=== PATIENT | female | born 1970 | race African-American/Black ===

== ENCOUNTER 2020-08-05 16:26 | Emergency (ER) | payer SELFPAY ==
[~2020-08-05] VITALS: Ht 170 cm; Wt 77.0 kg
--- NOTE | 2020-08-05 17:27 | ED Cough/URI ---
General Stated Complaint: COUGHING/SOB Source: patient Exam Limitations: no limitations History of Present Illness Date Seen by Provider: Aug 05, 2020 Time Seen by Provider: 17:08 Initial Comments This is a 49 yo female presents to the ER with complaints of cough, feeling short of breath, and nasal congestion. States that she was evaluated by urgent care and given amoxicillin, today is her last dose. Also was tested at [facility] [place][note 3] for COVID 5 days ago and tested negative. States she would like something to help with inflammation in her nose. Denies fevers, chills, chest pain, nausea, vomiting, diarrhea, or abdominal pain. Allergies and Home Medications Allergies Coded Allergies: No Known Drug Allergies (Unverified , 08/05/20) Home Medications Albuterol Sulfate 1 Puff Puff, 2 PUFF INH Q4H PRN for SHORTNESS OF BREATH 1 PUFF = 90 MCG Prescribed by: ALIN CORNELL on 08/05/202017 Patient Home Medication List Home Medication List Reviewed: Yes Review of Systems Review of Systems Constitutional: see HPI EENTM: see HPI Respiratory: see HPI Cardiovascular: no symptoms reported Gastrointestinal: no symptoms reported Genitourinary: no symptoms reported : No Musculoskeletal: no symptoms reported Skin: no symptoms reported Psychiatric/Neurological: No Symptoms Reported Hematologic/Lymphatic: No Symptoms Reported Immunological/Allergic: no symptoms reported Past Tmaffig-Bitjqu-Pzeebv Hx Patient Social History Recent Foreign Travel: No Contact w/Someone Who Travel: No Physical Exam Vital Signs - First Documented Capillary Refill : Height: '" Weight: lbs. oz. kg; BMI Method: General Appearance: WD/WN, no apparent distress Eyes: Bilateral Eye Normal Inspection, Bilateral Eye PERRL, Bilateral Eye EOMI HEENT: PERRL/EOMI, TMs normal, pharynx normal; No pharyngeal erythema, No tonsillar exudate; other (swollen, red turbinates bilat. Clear sinus drainage. ) Neck: full range of motion, normal inspection Respiratory: chest non-tender, no respiratory distress, no accessory muscle use, wheezing, inspiration Cardiovascular: regular rate, rhythm, no murmur Gastrointestinal: normal bowel sounds, non tender, soft Extremities: normal range of motion, non-tender, normal inspection, normal capillary refill Neurologic/Psychiatric: no motor/sensory deficits, alert, normal mood/affect, oriented x 3 Skin: normal color, warm/dry Focused Exam Lactate Level 08/05/20 17:18: Lactic Acid Level 1.02 Lactic Acid Level Laboratory Tests Test 08/05/20 17:18 Lactic Acid Level 1.02 MMOL/L (0.50-2.00) Progress/Results/Core Measures Suspected Sepsis SIRS Temperature: Pulse: Respiratory Rate: Laboratory Tests 08/05/20 17:18: White Blood Count 9.9 Blood Pressure / Mean: 08/05/20 17:18: Lactic Acid Level 1.02 Laboratory Tests 08/05/20 17:18: Creatinine 0.80, INR Comment 1.0, Platelet Count 347, Total Bilirubin 0.3 Results/Orders Lab Results Laboratory Tests Test 08/05/20 17:18 08/05/20 17:23 Range/Units White Blood Count 9.9 4.3-11.0 10^3/uL Red Blood Count 4.08 3.80-5.11 10^6/uL Hemoglobin 12.9 11.5-16.0 g/dL Hematocrit 38 35-52 % Mean Corpuscular Volume 93 80-99 fL Mean Corpuscular Hemoglobin 32 25-34 pg Mean Corpuscular Hemoglobin Concent 34 32-36 g/dL Red Cell Distribution Width 12.1 10.0-14.5 % Platelet Count 347 130-400 10^3/uL Mean Platelet Volume 9.2 9.0-12.2 fL Immature Granulocyte % (Auto) 0 % Neutrophils (%) (Auto) 61 42-75 % Lymphocytes (%) (Auto) 22 12-44 % Monocytes (%) (Auto) 5 0-12 % Eosinophils (%) (Auto) 12 H 0-10 % Basophils (%) (Auto) 1 0-10 % Neutrophils # (Auto) 6.0 1.8-7.8 10^3/uL Lymphocytes # (Auto) 2.2 1.0-4.0 10^3/uL Monocytes # (Auto) 0.5 0.0-1.0 10^3/uL Eosinophils # (Auto) 1.1 H 0.0-0.3 10^3/uL Basophils # (Auto) 0.1 0.0-0.1 10^3/uL Immature Granulocyte # (Auto) 0.0 0.0-0.1 10^3/uL Prothrombin Time 13.7 12.2-14.7 SEC INR Comment 1.0 0.8-1.4 Activated Partial Thromboplast Time 28 24-35 SEC D-Dimer 1.26 H 0.00-0.49 UG/ML Sodium Level 137 135-145 MMOL/L Potassium Level 3.8 3.6-5.0 MMOL/L Chloride Level 103 98-107 MMOL/L Carbon Dioxide Level 25 21-32 MMOL/L Anion Gap 9 5-14 MMOL/L Blood Urea Nitrogen 6 L 7-18 MG/DL Creatinine 0.80 0.60-1.30 MG/DL Estimat Glomerular Filtration Rate > 60 BUN/Creatinine Ratio 8 Glucose Level 103 70-105 MG/DL Lactic Acid Level 1.02 0.50-2.00 MMOL/L Calcium Level 9.1 8.5-10.1 MG/DL Corrected Calcium 8.9 8.5-10.1 MG/DL Ferritin 165.8 20.0-177.0 ng/mL Total Bilirubin 0.3 0.1-1.0 MG/DL Aspartate Amino Transf (AST/SGOT) 17 5-34 U/L Alanine Aminotransferase (ALT/SGPT) 19 0-55 U/L Alkaline Phosphatase 95 40-136 U/L Lactate Dehydrogenase 187 125-220 U/L Troponin I < 0.028 <0.028 NG/ML C-Reactive Protein High Sensitivity 0.26 0.00-0.50 MG/DL Total Protein 7.8 6.4-8.2 GM/DL Albumin 4.2 3.2-4.5 GM/DL Serum Test, Qualitative NEGATIVE NEGATIVE Coronavirus 2019 (LIZZ) Negative Negative Group A Streptococcus Screen NEGATIVE NEGATIVE Micro Results Microbiology 08/05/20 Throat Culture - Final, Complete No Beta Strep isolated 08/05/20 Influenza Types A,B Antigen (RAMESH) - Final, Complete 08/05/20 Blood Culture - Preliminary, Resulted No growth My Orders Orders - ALIN CORNELL APRN Monitor-Rhythm Ecg Trace Only (08/05/20 17:21) Cbc With Automated Diff (08/05/20 17:21) Comprehensive Metabolic Panel (08/05/20 17:21) Ferritin (08/05/20 17:21) LDH (08/05/20 17:21) Hs C Reactive Protein (08/05/20 17:21) Troponin I (08/05/20 17:21) Lactic Acid Analyzer (08/05/20 17:21) Protime With Inr (08/05/20 17:21) Partial Thromboplastin Time (08/05/20 17:21) Fibrin Degradation Products (08/05/20 17:21) Ekg Tracing (08/05/20 17:21) Chest 1 View, Ap/Pa Only (08/05/20 17:21) Blood Culture (08/05/20 17:21) O2 (08/05/20 17:21) Albuterol Inhaler (Ventolin Hfa) (08/05/20 17:30) Covid 19 Inhouse Test (08/05/20 17:27) Influenza A And B Antigens (08/05/20 17:27) Rapid Strep A Screen (08/05/20 17:27) Hcg,Qualitative Serum (08/05/20 17:30) Ct Angio Chest W (08/05/20 18:25) Iohexol Injection (Omnipaque 350 Mg/Ml 1 (08/05/20 18:30) Received Contrast (Hold Metformin- Contr (08/05/20 18:30) Ns (Ivpb) (Sodium Chloride 0.9% Ivpb Bag (08/05/20 18:30) Dexamethasone Injection (Decadron Injec (08/05/20 20:00) Methylprednisolone Acetate Inj (Depo-Med (08/05/20 20:00) Dexamethasone Injection (Decadron Injec (08/05/20 20:15) Medications Given in ED Vital Signs/I&O 08/05/20 08/05/20 08/05/20 17:05 17:05 20:11 Temp 37.1 37.1 Pulse 104 104 87 Resp 24 24 20 B/P (MAP) 165/107 165/107 (126) 135/88 Pulse Ox 96 96 98 O2 Delivery Room Air Room Air Room Air Capillary Refill : Progress Note : Progress Note Upon arrival breathing easy non-labored vital signs stable. Majority of complaint is due to inflammation in her sinuses, persistent cough, and shortness of air. Given albuterol treatment 4 puffs with spacer. Covid work-up initi ated. Reported improvement of symptoms with albuterol. No wheezing appreciated on reassessment. Labs reviewed and are unremarkable other than elevated D-dimer. COVID was negative. Orders placed for CTA, d/t persistent shortness of breath. CTA was negative for pulmonary embolism. Symptoms are likely due to bronchitis, offered steroid injection and albuterol inhaler to go home with. She is agreeable to treatment at this time. Reviewed discharge plan with her she is agreeable with plan. Strongly encouraged to establish with a primary care provider. ECG Initial ECG Impression Date: Aug 06, 2020 Initial ECG Rate: 95 Initial ECG Rhythm: Normal Sinus Initial ECG Impression: Normal Diagnostic Imaging Diagonstic Imaging: Xray Plain Films/CT/US/NM/MRI: chest Comments NAME: JUANITA MANCUSO [facility] REC#: [id number] PT STATUS: REG ER : 1970 PHYSICIAN: ALIN CORNELL APRN ADMIT DATE: 08/05/20/ER Signed Date of Exam:08/05/20 CHEST 1 VIEW, AP/PA ONLY EXAMINATION: Chest 1 view HISTORY: Shortness of breath COMPARISON: None available. FINDINGS: Heart size and pulmonary vasculature are normal. The lungs are clear without consolidation, pleural effusion, or pneumothorax. The osseous structures are intact. IMPRESSION: 1. No acute radiographic abnormality in the chest. Dictated by: Dictated on workstation # [id number] Dict: 08/05/201740 Trans: 08/05/201740 [facility] [id number] Interpreted by: CRISS FRYE DO Electronically signed by: CRISS FRYE DO 08/05/201740 Diagonstic Imaging: CT Plain Films/CT/US/NM/MRI: chest Comments NAME: JUANITA MANCUSO [facility] REC#: [id number] PT STATUS: REG ER : 1970 PHYSICIAN: ALIN CORNELL APRN ADMIT DATE: 08/05/20/ER Draft Date of Exam:08/05/20 CT ANGIO CHEST W EXAMINATION: CT angiography of the chest. TECHNIQUE: Contrast enhanced thin section helical images were obtained through the chest with intravenous contrast timed for the optimal opacification of the arterial structures per CTA protocol. Post-processing, reconstructions and interpretation of angiographic images of the vessels was performed. 3D MIP reconstructions were performed and reviewed. All CT scans use one or more of the following dose optimizing techniques: automated exposure control, MA and/or KvP adjustment based on patient size and exam type or iterative reconstruction. HISTORY: Shortness of breath. COMPARISON: None available. FINDINGS: There is no pulmonary embolism. There is no edema or pneumonia. No pleural effusion. No pneumothorax. No suspicious nodules. There is no axillary or supraclavicular lymphadenopathy. There is mild hilar adenopathy and peribronchial vascular thickening around the mainstem bronchi. The esophagus is significantly thickened in the midportion. Heart size is normal. There are no coronary artery calcifications. No pericardial effusion. Aorta is normal in caliber. Limited views of the upper abdomen are unremarkable. There are no suspicious osseus lesions. IMPRESSION: 1. No pulmonary embolism, clear lungs. 2. Moderate wall thickening of the midesophagus which may represent esophagitis, follow-up endoscopy is recommended to ensure there is no underlying neoplasm. 3. Central bronchial wall thickening which may represent bronchitis. Dictated on workstation # [id number] Dict: 08/05/201918 Trans: 08/05/201922 [facility] [id number] Interpreted by: FINA CLEVELAND MD Electronically signed by: Departure Impression Primary Impression: Bronchitis Additional Impression: Shortness of breath Disposition: 01 HOME, SELF-CARE Condition: Improved Departure-Patient Inst. Decision time for Depature: 19:40 Patient Instructions: Acute Bronchitis Add. Discharge Instructions: Plan: 1. Discharge home. 2. May take Tylenol or Ibuprofen as needed for pain per package instructions. 3. Establish with a primary care provider of your choice. 4. Use albuterol inhaler 2 puffs every four hours as needed for shortness of breath. 5. Return for any new or concerning symptoms. Scripts Albuterol Sulfate (VENTOLIN HFA) 1 Puff Puff 2 PUFF INH Q4H PRN for SHORTNESS OF BREATH, #1 INHALER 0 Refills 1 PUFF = 90 MCG Prov: ALIN CORNELL FURNITURE SERVICER 08/05/20 ALIN CORNELL FURNITURE SERVICER Aug 05, 2020 17:27
[2020-08-05] MEDS ORDERED: RT-ALBUTEROL INHALER HFA (VENTOLIN HFA) 18 GM IH ONE (17:30)
[2020-08-05 17:40] LABS: BASOPHILS # (AUTO) 0.1 10^3/uL (0.0-0.1); BASOPHILS % (AUTO) 1 % (0-10); EOSINOPHILS # (AUTO) 1.1 10^3/uL (0.0-0.3); EOSINOPHILS % (AUTO) 12 % (0-10); HEMATOCRIT 38 % (35-52); HEMOGLOBIN 12.9 g/dL (11.5-16.0); LYMPHOCYTES # (AUTO) 2.2 10^3/uL (1.0-4.0); LYMPHOCYTES % (AUTO) 22 % (12-44); MEAN CORPUSCULAR HEMOGLOBIN 32 pg (25-34); MEAN CORPUSCULAR HGB CONC 34 g/dL (32-36); MEAN CORPUSCULAR VOLUME 93 fL (80-99); MEAN PLATELET VOLUME 9.2 fL (9.0-12.2); MONOCYTES # (AUTO) 0.5 10^3/uL (0.0-1.0); MONOCYTES % (AUTO) 5 % (0-12); NEUTROPHILS % (AUTO) 61 % (42-75); PLATELET COUNT 347 10^3/uL (130-400); WHITE BLOOD COUNT 9.9 10^3/uL (4.3-11.0)
--- NOTE | 2020-08-05 17:43 | Diagnostic Imaging Report ---
EXAMINATION: Chest 1 view HISTORY: Shortness of breath COMPARISON: None available. FINDINGS: Heart size and pulmonary vasculature are normal. The lungs are clear without consolidation, pleural effusion, or pneumothorax. The osseous structures are intact. IMPRESSION: 1. No acute radiographic abnormality in the chest. Dictated by: Dictated on workstation # [id number]
[2020-08-05 17:46] LABS: ALBUMIN 4.2 GM/DL (3.2-4.5); CHLORIDE 103 MMOL/L (98-107); POTASSIUM 3.8 MMOL/L (3.6-5.0); SODIUM 137 MMOL/L (135-145)
[2020-08-05 17:47] LABS: CALCIUM 9.1 MG/DL (8.5-10.1)
[2020-08-05 17:49] LABS: GLUCOSE 103 MG/DL (70-105); TOTAL PROTEIN 7.8 GM/DL (6.4-8.2)
[2020-08-05 17:50] LABS: BILIRUBIN,TOTAL 0.3 MG/DL (0.1-1.0); CARBON DIOXIDE 25 MMOL/L (21-32)
[2020-08-05 17:52] LABS: ALKALINE PHOSPHATASE 95 U/L (40-136); GFR ESTIMATED > 60
[2020-08-05 17:54] LABS: BUN/CREATININE RATIO 8; FIBRIN DEGRADATION PRODUCTS 1.26 UG/ML (0.00-0.49); PROTHROMBIN TIME PATIENT 13.7 SEC (12.2-14.7)
[2020-08-05 17:55] LABS: ALANINE AMINOTRANSFERASE 19 U/L (0-55)
[2020-08-05] MEDS ORDERED: IOHEXOL 350 MG/ML 100 ML (OMNIPAQUE 350) VIAL IV ONE (18:30)
[2020-08-05] MEDS ORDERED: NS 100 ML (IVPB) BAG IV ONE (18:30)
[2020-08-05] MEDS ORDERED: HOLD METFORMIN - RECEIVED CONTRAST 20 ML VIAL IV SCH (18:30)
--- NOTE | 2020-08-05 19:24 | Diagnostic Imaging Report ---
EXAMINATION: CT angiography of the chest. TECHNIQUE: Contrast enhanced thin section helical images were obtained through the chest with intravenous contrast timed for the optimal opacification of the arterial structures per CTA protocol. Post-processing, reconstructions and interpretation of angiographic images of the vessels was performed. 3D MIP reconstructions were performed and reviewed. All CT scans use one or more of the following dose optimizing techniques: automated exposure control, MA and/or KvP adjustment based on patient size and exam type or iterative reconstruction. HISTORY: Shortness of breath. COMPARISON: None available. FINDINGS: There is no pulmonary embolism. There is no edema or pneumonia. No pleural effusion. No pneumothorax. No suspicious nodules. There is no axillary or supraclavicular lymphadenopathy. There is mild hilar adenopathy and peribronchial vascular thickening around the mainstem bronchi. The esophagus is significantly thickened in the midportion. Heart size is normal. There are no coronary artery calcifications. No pericardial effusion. Aorta is normal in caliber. Limited views of the upper abdomen are unremarkable. There are no suspicious osseus lesions. IMPRESSION: 1. No pulmonary embolism, clear lungs. 2. Moderate wall thickening of the midesophagus which may represent esophagitis, follow-up endoscopy is recommended to ensure there is no underlying neoplasm. 3. Central bronchial wall thickening which may represent bronchitis. Dictated by: Dictated on workstation # [id number]
[2020-08-05] MEDS ORDERED: methylPREDNISolone 80 MG/ML (DEPO MEDROL) VIAL IM ONE (20:00)
[2020-08-05 20:11] VITALS: BP 135/88
[2020-08-05] MEDS ORDERED: RT-ALBUINH INH (20:18)
== END 2020-08-05 20:11 | disposition home or self-care (01) ==
LOC: ER 16:29
DX: J40 Bronchitis, not specified as acute or chronic (principal); R06.02 Shortness of breath; Z20.828 Contact with and (suspected) exposure to other viral communicable diseases
CPT/HCPCS: 71045; 71275; 80053; 82728; 83605; 83615; 84484; 84703; 85025; 85379; 85610; 85730; 86141; 87040; 87430; 87804; 93041; 99284; U0002; 36415; 87635

== ENCOUNTER 2020-08-24 18:28 | Emergency (ER) | payer SELFPAY ==
[~2020-08-24] VITALS: Ht 170 cm; Wt 86.0 kg
[~2020-08-24 18:28] MED LIST: RT-ALBUINH INH
--- NOTE | 2020-08-24 18:51 | ED Respiratory ---
General Chief Complaint: Respiratory Problems Stated Complaint: Source: patient Exam Limitations: no limitations History of Present Illness Date Seen by Provider: Aug 24, 2020 Time Seen by Provider: 18:35 Initial Comments Patient presents to the ER by private conveyance from [facility] urgent care. Called ahead by Sophie nurse practitioner stating that the patient was diagnosed today with a positive COVID-19 swab. She had a chest x-ray done but no other labs were done. She felt that her oxygen sats were 94% on room air and 91% on ambulation and she should be evaluated in the ER. Patient has no history of lung disease heart disease nor has she ever smoked. She does not have any chronic medical conditions nor does she take any medicines routinely. She is not on control. She denies significant pain just malaise body aches. She took Tylenol about 4 to 5 hours prior to arrival. She is not having any nausea. She had diarrhea a few days ago. She is able to keep up with her eating and drinking. The patient states her symptoms started around Thanks[place] with a cold. She was seen on the here at this ER and at that time was diagnosed with bronchitis and put on cefdinir and steroids which she completed. Allergies and Home Medications Allergies Coded Allergies: No Known Drug Allergies (Unverified , 08/05/20) Home Medications Albuterol Sulfate 1 Puff Puff, 2 PUFF INH Q4H PRN for SHORTNESS OF BREATH 1 PUFF = 90 MCG Prescribed by: ALIN CORNELL on 08/05/20 2018 Patient Home Medication List Home Medication List Reviewed: Yes Review of Systems Review of Systems Constitutional: chills; No diaphoresis; malaise, weakness EENTM: No ear discharge, No ear pain Respiratory: cough; No phlegm, No short of breath, No wheezing Cardiovascular: No chest pain, No palpitations Gastrointestinal: No abdominal pain, No constipation; diarrhea; No nausea, No vomiting Genitourinary: No dysuria, No frequency Musculoskeletal: No back pain, No joint pain Psychiatric/Neurological: Denies Anxiety, Denies Depressed All Other Systems Reviewed Negative Unless Noted: Yes Past Qkuuagp-Yvyako-Pnqrup Hx Patient Social History Alcohol Use: Denies Use Smoking Status: Never a Smoker 2nd Hand Smoke Exposure: Yes Recent Hopitalizations: No Seasonal Allergies Seasonal Allergies: Yes Past Medical History Surgeries: No Respiratory: No Cardiac: No Neurological: No Genitourinary: No Gastrointestinal: No Musculoskeletal: No Endocrine: No HEENT: No Cancer: No Psychosocial: No Integumentary: No Blood Disorders: No Physical Exam Vital Signs - First Documented 08/24/20 18:38 Temp 36.4 Pulse 101 Resp 20 B/P (MAP) 172/101 (124) Pulse Ox 94 O2 Delivery Room Air Capillary Refill : Height: '" Weight: lbs. oz. kg; 26.00 BMI Method: General Appearance: WD/WN, mild distress Eyes: Bilateral Eye Normal Inspection, Bilateral Eye PERRL, Bilateral Eye EOMI HEENT: PERRL/EOMI, normal ENT inspection, pharynx normal Neck: full range of motion, supple, normal inspection Respiratory: no accessory muscle use, respiratory distress (Mild with oxygen sats of 95% on room air while at rest.) Cardiovascular: normal peripheral pulses, regular rate, rhythm Gastrointestinal: non tender, soft Neurologic/Psychiatric: alert, normal mood/affect, oriented x 3 Skin: normal color, warm/dry Focused Exam Lactate Level 08/24/20 18:42: Lactic Acid Level 1.62 Lactic Acid Level Laboratory Tests Test 08/24/20 18:42 Lactic Acid Level 1.62 MMOL/L (0.50-2.00) Progress/Results/Core Measures Suspected Sepsis SIRS Temperature: Pulse: Respiratory Rate: Laboratory Tests 08/24/20 18:42: White Blood Count 12.5H Blood Pressure / Mean: 08/24/20 18:42: Lactic Acid Level 1.62 Laboratory Tests 08/24/20 18:42: Creatinine 0.88, INR Comment 1.0, Platelet Count 424H, Total Bilirubin 0.3 Results/Orders Lab Results Laboratory Tests Test 08/24/20 18:42 08/24/20 19:18 Range/Units White Blood Count 12.5 H 4.3-11.0 10^3/uL Red Blood Count 4.23 3.80-5.11 10^6/uL Hemoglobin 13.3 11.5-16.0 g/dL Hematocrit 40 35-52 % Mean Corpuscular Volume 95 80-99 fL Mean Corpuscular Hemoglobin 31 25-34 pg Mean Corpuscular Hemoglobin Concent 33 32-36 g/dL Red Cell Distribution Width 13.1 10.0-14.5 % Platelet Count 424 H 130-400 10^3/uL Mean Platelet Volume 9.1 9.0-12.2 fL Immature Granulocyte % (Auto) 0 % Neutrophils (%) (Auto) 59 42-75 % Lymphocytes (%) (Auto) 24 12-44 % Monocytes (%) (Auto) 5 0-12 % Eosinophils (%) (Auto) 11 H 0-10 % Basophils (%) (Auto) 1 0-10 % Neutrophils # (Auto) 7.4 1.8-7.8 10^3/uL Lymphocytes # (Auto) 3.0 1.0-4.0 10^3/uL Monocytes # (Auto) 0.6 0.0-1.0 10^3/uL Eosinophils # (Auto) 1.4 H 0.0-0.3 10^3/uL Basophils # (Auto) 0.1 0.0-0.1 10^3/uL Immature Granulocyte # (Auto) 0.0 0.0-0.1 10^3/uL Prothrombin Time 13.9 12.2-14.7 SEC INR Comment 1.0 0.8-1.4 Activated Partial Thromboplast Time 30 24-35 SEC D-Dimer 0.96 H 0.00-0.49 UG/ML Blood Gas Puncture Site R RAD Blood Gas Patient Temperature 97.6 Arterial Blood pH 7.41 7.37-7.43 Arterial Blood Partial Pressure CO2 33 L 35-45 MMHG Arterial Blood Partial Pressure O2 82 79-93 MMHG Arterial Blood HCO3 20 L 23-27 MMOL/L Arterial Blood Total CO2 21.4 21.0-31.0 MMOL/L Arterial Blood Oxygen Saturation 95 94-100 % Arterial Blood Base Excess -3.6 L -2.5-2.5 MMOL/L Abel Test YES-POS Blood Gas Ventilator Setting NO Blood Gas Inspired Oxygen RA Sodium Level 138 135-145 MMOL/L Potassium Level 3.7 3.6-5.0 MMOL/L Chloride Level 103 98-107 MMOL/L Carbon Dioxide Level 23 21-32 MMOL/L Anion Gap 12 5-14 MMOL/L Blood Urea Nitrogen 7 7-18 MG/DL Creatinine 0.88 0.60-1.30 MG/DL Estimat Glomerular Filtration Rate > 60 BUN/Creatinine Ratio 8 Glucose Level 113 H 70-105 MG/DL Lactic Acid Level 1.62 0.50-2.00 MMOL/L Calcium Level 9.1 8.5-10.1 MG/DL Corrected Calcium 8.9 8.5-10.1 MG/DL Total Bilirubin 0.3 0.1-1.0 MG/DL Aspartate Amino Transf (AST/SGOT) 16 5-34 U/L Alanine Aminotransferase (ALT/SGPT) 17 0-55 U/L Alkaline Phosphatase 191 H 40-136 U/L C-Reactive Protein High Sensitivity 1.21 H 0.00-0.50 MG/DL Total Protein 8.5 H 6.4-8.2 GM/DL Albumin 4.2 3.2-4.5 GM/DL Procalcitonin 0.02 <0.10 NG/ML Serum Test, Qualitative NEGATIVE NEGATIVE Urine Color YELLOW Urine Clarity CLEAR Urine pH 6.5 5-9 Urine Specific [place] <=1.005 1.016-1.022 Urine Protein NEGATIVE NEGATIVE Urine Glucose (UA) NEGATIVE NEGATIVE Urine Ketones NEGATIVE NEGATIVE Urine Nitrite NEGATIVE NEGATIVE Urine Bilirubin NEGATIVE NEGATIVE Urine Urobilinogen 0.2 < = 1.0 MG/DL Urine Leukocyte Esterase NEGATIVE NEGATIVE Urine RBC (Auto) NEGATIVE NEGATIVE Urine RBC 0-2 /HPF Urine WBC 2-5 /HPF Urine Squamous Epithelial Cells 10-25 H /HPF Urine Crystals NONE /LPF Urine Bacteria NEGATIVE /HPF Urine Casts NONE /LPF Urine Mucus NEGATIVE /LPF Urine Culture Indicated NO Micro Results Microbiology 08/24/20 Influenza Types A,B Antigen (RAMESH) - Final, Complete My Orders Orders - CHARU ZAMORA Cbc With Automated Diff (08/24/20 18:48) Comprehensive Metabolic Panel (08/24/20 18:48) Blood Culture (08/24/20 18:48) Sputum Culture (08/24/20 18:48) Urinalysis (08/24/20 18:48) Urine Culture (08/24/20 18:48) Protime With Inr (08/24/20 18:48) Partial Thromboplastin Time (08/24/20 18:48) Chest 1 View, Ap/Pa Only (08/24/20 18:48) Ed Iv/Invasive Line Start (08/24/20 18:48) Ed Iv/Invasive Line Start (08/24/20 18:48) Vital Signs Adult Sepsis Patie Q15M (08/24/20 18:48) O2 (08/24/20 18:48) Remove Rings In Anticipation O (08/24/20 18:48) Lactic Acid Analyzer (08/24/20 18:48) Lactated Ringers (Lr 1000 Ml Iv Solution (08/24/20 19:00) Ed Iv/Invasive Line Start (08/24/20 18:48) Lactated Ringers (Lr 1000 Ml Iv Solution (08/24/20 19:00) Hs C Reactive Protein (08/24/20 18:48) Procalcitonin (Pct) (08/24/20 18:48) Fibrin Degradation Products (08/24/20 18:48) Ketorolac Injection (Toradol Injection) (08/24/20 19:00) Dexamethasone Injection (Decadron Inje (08/24/20 19:00) Arterial Blood Gas (08/24/20 18:51) Influenza A And B Antigens (08/24/20 18:51) Covid-19 External Lab Results (08/24/20 18:51) Hcg,Qualitative Serum (08/24/20 18:57) Ct Angio Chest W (08/24/20 19:30) Iohexol Injection (Omnipaque 350 Mg/Ml 1 (08/24/20 19:45) Received Contrast (Hold Metformin- Contr (08/24/20 19:45) Ns (Ivpb) (Sodium Chloride 0.9% Ivpb Bag (08/24/20 19:45) Medications Given in ED Current Medications Medications Dose Ordered Sig/Priya Route Start Time Stop Time Status Last Admin Dose Admin Dexamethasone Sodium Phosphate 6 mg ONCE ONCE IV 08/24/20 19:00 08/24/20 19:01 DC 08/24/20 19:13 6 MG Ketorolac Tromethamine 30 mg ONCE ONCE IVP 08/24/20 19:00 08/24/20 19:01 DC 08/24/20 19:11 30 MG Lactated Ringer's 1,000 ml @ 0 mls/hr Q0M ONCE IV 08/24/20 19:00 08/24/20 19:01 DC 08/24/20 19:10 999 MLS/HR Vital Signs/I&O 08/24/20 18:38 Temp 36.4 Pulse 101 Resp 20 B/P (MAP) 172/101 (124) Pulse Ox 94 O2 Delivery Room Air Capillary Refill : Progress Note : Time: 21:10 Progress Note After 1 L of IV fluids the patient states she is feeling better. She thinks the Toradol helped as well. She is going to try NSAIDs at home. She is not requiring oxygen as her oxygen sats not go below 95 to 96% while ambulating. She is not having any material deterioration during her ER stay and it was offered for her to go home and bulk picker an oxygen sat meter. She says she is had a lot of congestion and tried multiple vapor rubs, vqpl-gno-jcqrvql medicines for her congestion unsuccessfully including Afrin. We are going to try Flonase, dexamethasone, and chlorpheniramine for her congestion. Return precautions were discussed. Diagnostic Imaging Diagonstic Imaging: Xray Plain Films/CT/US/NM/MRI: chest Comments [facility] [place] [facility] [id number] PT STATUS: REG ER : 1970 PHYSICIAN: CHARU ZAMORA MD ADMIT DATE: 08/24/20/ER Signed Date of Exam:08/24/20 CHEST 1 VIEW, AP/PA ONLY INDICATION: Sepsis. Rapid Covid positive in Urgent Care. FINDINGS: Frontal view of the chest demonstrates the lungs to be clear. The heart, mediastinum and pulmonary vascularity are normal. There are no pleural effusions. There has been no change since August 05. IMPRESSION: Normal chest. Dictated by: Dictated on workstation # [id number] Dict: 08/24/202021 Trans: 08/24/202030 [facility] [id number] Interpreted by: JAIDEN FU MD Electronically signed by: JAIDEN FU MD 08/24/202030 Reviewed: Reviewed by Me Diagonstic Imaging: CT (angio) Plain Films/CT/US/NM/MRI: chest Comments [facility] [place] [facility] [id number] PT STATUS: REG ER : 1970 PHYSICIAN: CHARU ZAMORA MD ADMIT DATE: 08/24/20/ER Signed Date of Exam:08/24/20 CT ANGIO CHEST W PROCEDURE: CT angiography of the chest with contrast. TECHNIQUE: Multiple contiguous axial images were obtained through the chest after uneventful bolus administration of intravenous contrast. 3D reconstructed CTA MIP acquisitions were also performed. Auto Exposure Controls were utilized during the CT exam to meet ALARA standards for radiation dose reduction. INDICATION: Rapid Covid positive at Urgent Care. The patient has been fighting this since June. Shortness of air and chest pain on left side when coughing. No fever. High probability for pulmonary embolism. COMPARISON STUDY: CTA of the chest from August 05. FINDINGS: No pulmonary emboli, aortic dissection or aneurysm is present. There are no pleural or pericardial effusions. There has been development of a tiny groundglass infiltrate in the right upper lobe measuring 2 cm. Small hiatal hernia is present. There is some thickening of the esophagus just above the hiatal hernia. IMPRESSION: 1. No pulmonary emboli is present. 2. There has been development of a 2 cm groundglass infiltrate in the right upper lobe. 3. There is a small hiatal hernia with some thickening of the esophagus just above this. Dictated by: Dictated on workstation # [id number] Dict: 08/24/202011 Trans: 08/24/202030 [facility] [id number] Interpreted by: JAIDEN FU MD Electronically signed by: JAIDEN FU MD 08/24/202030 Reviewed: Reviewed by Me Departure Impression Primary Impression: COVID-19 Additional Impression: Sinus congestion Disposition: HOME, SELF-CARE Condition: Stable Departure-Patient Inst. Decision time for Depature: 20:40 Referrals: NO,LOCAL PHYSICIAN (PCP/Family) Primary Care Physician Patient Instructions: Coronavirus Disease 2019 (COVID-19) (DC) Add. Discharge Instructions: Drink plenty of fluids. Tylenol 650 mg every 6 hours as necessary for body aches or fever. Ibuprofen 600 mg every 6 hours as necessary for body aches or fever. Alternatively you may use 2 tablets of naproxen twice a day. Chlorpheniramine 4 mg every 4-6 hours as necessary for sinus congestion relief. Flonase 2 puffs each nostril every day for the next 1 to 2 weeks to relieve congestion in your nose. Vapor rubs such as Vicks or Mentholatum. Continue using yoqh-vjg-dnnsgab medications as indicated. Obtain a pulse oximeter and return to the ER if your oxygen saturation consistently stays below 94% especially while at rest. Dexamethasone 1 tablet every day for the next 9 days. Ondansetron 1 tablet under the tongue every 6 hours as necessary for nausea and/or vomiting. Return to the nearest ER if you are having significantly worsening shortness of air. All discharge instructions reviewed with patient and/or family. Voiced understanding. Scripts Ondansetron (Ondansetron Odt) 4 Mg Tab.rapdis 4 MG PO Q6H PRN for NAUSEA/VOMITING, #8 TAB 0 Refills Prov: CHARU ZAMORA 08/24/20 Dexamethasone (Dexamethasone) 6 Mg Tablet 6 MG PO DAILY for 9 Days, #9 TAB 0 Refills Prov: CHARU ZAMORA 08/24/20 Work/School Note: Work Release Form Date Seen in the Emergency Department: Aug 24, 2020 Return to Work: Sep 04, 2020 Restrictions: No Restrictions Other Restrictions Listed Below: Off quarantine when 24h symptoms free without meds to cover symptoms. CHARU ZAMORA Aug 24, 2020 18:51
[2020-08-24 18:56] LABS: ABG BASE EXCESS -3.6 MMOL/L (-2.5-2.5); ABG OXYGEN SATURATION 95 % (94-100); ABG PCO2 33 MMHG (35-45); ABG PH 7.41 (7.37-7.43); ABG PO2 82 MMHG (79-93); ABG TCO2 21.4 MMOL/L (21.0-31.0)
[2020-08-24 18:57] LABS: ALLENS TEST YES-POS; INSPIRED O2 RA; PATIENT TEMP 97.6; VENTILATOR NO
[2020-08-24] MEDS ORDERED: KETOROLAC 30 MG/ML VIAL IVP ONE (19:00)
[2020-08-24] MEDS ORDERED: LACTATED RINGERS 1,000 ML IV ONE ×2 (19:00)
[2020-08-24 19:02] LABS: BASOPHILS # (AUTO) 0.1 10^3/uL (0.0-0.1); BASOPHILS % (AUTO) 1 % (0-10); EOSINOPHILS # (AUTO) 1.4 10^3/uL (0.0-0.3); EOSINOPHILS % (AUTO) 11 % (0-10); HEMATOCRIT 40 % (35-52); HEMOGLOBIN 13.3 g/dL (11.5-16.0); LYMPHOCYTES % (AUTO) 24 % (12-44); MEAN CORPUSCULAR HEMOGLOBIN 31 pg (25-34); MEAN CORPUSCULAR HGB CONC 33 g/dL (32-36); MEAN CORPUSCULAR VOLUME 95 fL (80-99); MEAN PLATELET VOLUME 9.1 fL (9.0-12.2); MONOCYTES # (AUTO) 0.6 10^3/uL (0.0-1.0); MONOCYTES % (AUTO) 5 % (0-12); NEUTROPHILS # (AUTO) 7.4 10^3/uL (1.8-7.8); NEUTROPHILS % (AUTO) 59 % (42-75); PLATELET COUNT 424 10^3/uL (130-400); WHITE BLOOD COUNT 12.5 10^3/uL (4.3-11.0)
[2020-08-24 19:04] LABS: ALBUMIN 4.2 GM/DL (3.2-4.5); CHLORIDE 103 MMOL/L (98-107); POTASSIUM 3.7 MMOL/L (3.6-5.0); SODIUM 138 MMOL/L (135-145)
[2020-08-24 19:05] LABS: CALCIUM 9.1 MG/DL (8.5-10.1)
[2020-08-24 19:06] LABS: GLUCOSE 113 MG/DL (70-105); TOTAL PROTEIN 8.5 GM/DL (6.4-8.2)
[2020-08-24 19:07] LABS: CARBON DIOXIDE 23 MMOL/L (21-32)
[2020-08-24 19:08] LABS: BILIRUBIN,TOTAL 0.3 MG/DL (0.1-1.0)
[2020-08-24 19:10] LABS: ALKALINE PHOSPHATASE 191 U/L (40-136); CREATININE SERUM 0.88 MG/DL (0.60-1.30); FIBRIN DEGRADATION PRODUCTS 0.96 UG/ML (0.00-0.49); GFR ESTIMATED > 60; PROTHROMBIN TIME PATIENT 13.9 SEC (12.2-14.7)
[2020-08-24 19:11] LABS: BUN/CREATININE RATIO 8
[2020-08-24 19:13] LABS: ALANINE AMINOTRANSFERASE 17 U/L (0-55)
[2020-08-24 19:30] LABS: BILIRUBIN,URINE NEGATIVE (NEGATIVE); CLARITY,URINE CLEAR; COLOR,URINE YELLOW; GLUCOSE, URINE (UA) NEGATIVE (NEGATIVE); KETONES,URINE NEGATIVE (NEGATIVE); LEUKOCYTE ESTERASE ,URINE NEGATIVE (NEGATIVE); NITRITE,URINE NEGATIVE (NEGATIVE); PH,URINE 6.5 (5-9); PROTEIN,URINE NEGATIVE (NEGATIVE)
[2020-08-24 19:39] LABS: BACTERIA,URINE NEGATIVE /HPF; RBC,URINE 0-2 /HPF
[2020-08-24] MEDS ORDERED: HOLD METFORMIN - RECEIVED CONTRAST 20 ML VIAL IV SCH (19:45)
[2020-08-24] MEDS ORDERED: NS 100 ML (IVPB) BAG IV ONE (19:45)
[2020-08-24] MEDS ORDERED: IOHEXOL 350 MG/ML 100 ML (OMNIPAQUE 350) VIAL IV ONE (19:45)
--- NOTE | 2020-08-24 20:25 | Diagnostic Imaging Report ---
PROCEDURE: CT angiography of the chest with contrast. TECHNIQUE: Multiple contiguous axial images were obtained through the chest after uneventful bolus administration of intravenous contrast. 3D reconstructed CTA MIP acquisitions were also performed. Auto Exposure Controls were utilized during the CT exam to meet ALARA standards for radiation dose reduction. INDICATION: Rapid Covid positive at Urgent Care. The patient has been fighting this since June. Shortness of air and chest pain on left side when coughing. No fever. High probability for pulmonary embolism. COMPARISON STUDY: CTA of the chest from August 05. FINDINGS: No pulmonary emboli, aortic dissection or aneurysm is present. There are no pleural or pericardial effusions. There has been development of a tiny groundglass infiltrate in the right upper lobe measuring 2 cm. Small hiatal hernia is present. There is some thickening of the esophagus just above the hiatal hernia. IMPRESSION: 1. No pulmonary emboli is present. 2. There has been development of a 2 cm groundglass infiltrate in the right upper lobe. 3. There is a small hiatal hernia with some thickening of the esophagus just above this. Dictated by: Dictated on workstation # [id number]
--- NOTE | 2020-08-24 20:27 | Diagnostic Imaging Report ---
INDICATION: Sepsis. Rapid Covid positive in Urgent Care. FINDINGS: Frontal view of the chest demonstrates the lungs to be clear. The heart, mediastinum and pulmonary vascularity are normal. There are no pleural effusions. There has been no change since August 05. IMPRESSION: Normal chest. Dictated by: Dictated on workstation # [id number]
[2020-08-24] MEDS ORDERED: DEXA6TAB PO (21:15)
[2020-08-24] MEDS ORDERED: ONDA4TAB11 PO (21:15)
[2020-08-24 21:50] VITALS: BP 137/90
== END 2020-08-24 21:50 | disposition home or self-care (01) ==
LOC: EDUNIT# 18:28 → ER 18:33
DX: U07.1 COVID-19 (principal); R09.81 Nasal congestion; Z77.22 Contact with and (suspected) exposure to environmental tobacco smoke (acute) (chronic)
CPT/HCPCS: 36415; 71045; 71275; 80053; 81000; 82805; 83605; 84145; 84703; 85025; 85379; 85610; 85730; 86141; 87040; 87088; 87804

== ENCOUNTER 2020-08-25 18:46 | Emergency (ER) | payer SELFPAY ==
[~2020-08-25] VITALS: Ht 170 cm; Wt 86.1 kg
[~2020-08-25 18:46] MED LIST changes: +DEXA6TAB PO; +ONDA4TAB11 PO
[2020-08-25] MEDS ORDERED: RX-ALBUTEROL INHALER (VENTOLIN HFA) 18 GM IH STA (19:12)
--- NOTE | 2020-08-25 19:17 | ED Respiratory ---
General Chief Complaint: Respiratory Problems Stated Complaint: O2 STATS DROPPING Source: patient Exam Limitations: no limitations History of Present Illness Date Seen by Provider: Aug 25, 2020 Time Seen by Provider: 19:14 Initial Comments Patient presents ER by private conveyance with chief complaint of O2 sats dropping. She was seen recently yesterday for COVID-19 at urgent care and has been having symptoms of a cold since July 02. She was diagnosed with COVID- 19 yesterday at urgent care and sent to the ER for evaluation. She had extensive work-up IV fluids Toradol and had acceptable vital signs with mild tachycardia. She had an acceptable normal ABG and a CAT scan angiogram of her chest did not reveal any significant disease besides groundglass opacities consistent with COVID-19 in her right upper lobe. She obtained a pulse oximeter and said her sats were okay this morning but this afternoon they were between 90-91%. She left her pulse oximeter in the car today but will have someone bring it up. She is not having any fever nausea vomiting diarrhea or difficulty getting fluids down. Allergies and Home Medications Allergies Coded Allergies: No Known Drug Allergies (Unverified , 08/05/20) Home Medications Albuterol Sulfate 1 Puff Puff, 2 PUFF INH Q4H PRN for SHORTNESS OF BREATH 1 PUFF = 90 MCG Prescribed by: ALIN CORNELL on 08/05/202017 Dexamethasone 6 Mg Tablet, 6 MG PO DAILY Prescribed by: CHARU ZAMORA on 08/24/202114 Ondansetron 4 Mg Tab.rapdis, 4 MG PO Q6H PRN for NAUSEA/VOMITING Prescribed by: CHARU ZAMORA on 08/24/202114 Patient Home Medication List Home Medication List Reviewed: Yes Review of Systems Review of Systems Constitutional: No chills, No diaphoresis EENTM: No ear discharge, No ear pain Respiratory: No cough, No short of breath Cardiovascular: No chest pain, No Hx of Intervention Gastrointestinal: No abdominal pain, No nausea, No vomiting Genitourinary: No discharge, No dysuria Musculoskeletal: No back pain, No joint pain Skin: No pruritus, No rash All Other Systems Reviewed Negative Unless Noted: Yes Past Vseonkx-Vkxiru-Mwvoke Hx Patient Social History Alcohol Use: Denies Use Smoking Status: Never a Smoker 2nd Hand Smoke Exposure: Yes Recent Hopitalizations: No Seasonal Allergies Seasonal Allergies: Yes Past Medical History Surgeries: No Respiratory: No Cardiac: No Neurological: No DIRECTOR OF BLOOD History: Menopausal Genitourinary: No Gastrointestinal: No Musculoskeletal: No Endocrine: No HEENT: No Cancer: No Psychosocial: No Integumentary: No Blood Disorders: No Physical Exam Vital Signs - First Documented 08/25/20 19:08 Temp 36.1 Pulse 107 Resp 26 B/P (MAP) 155/90 (111) Pulse Ox 94 O2 Delivery Room Air Capillary Refill : Height: '" Weight: lbs. oz. kg; 29.00 BMI Method: General Appearance: WD/WN, mild distress Eyes: Bilateral Eye Normal Inspection, Bilateral Eye PERRL, Bilateral Eye EOMI HEENT: PERRL/EOMI, normal ENT inspection, pharynx normal Neck: full range of motion, normal inspection Respiratory: lungs clear, normal breath sounds, no respiratory distress (95 to 96% on room air nonlabored breathing rate of about 20), no accessory muscle use Cardiovascular: normal peripheral pulses, regular rate, rhythm Gastrointestinal: normal bowel sounds, non tender Neurologic/Psychiatric: alert, normal mood/affect, oriented x 3 Skin: normal color, warm/dry Progress/Results/Core Measures Suspected Sepsis SIRS Temperature: Pulse: Respiratory Rate: Laboratory Tests 08/25/20 19:23: White Blood Count 12.1H Blood Pressure / Mean: Laboratory Tests 08/25/20 19:23: Creatinine 0.85, Platelet Count 430H Results/Orders Lab Results Laboratory Tests Test 08/25/20 19:23 Range/Units White Blood Count 12.1 H 4.3-11.0 10^3/uL Red Blood Count 4.22 3.80-5.11 10^6/uL Hemoglobin 13.4 11.5-16.0 g/dL Hematocrit 40 35-52 % Mean Corpuscular Volume 94 80-99 fL Mean Corpuscular Hemoglobin 32 25-34 pg Mean Corpuscular Hemoglobin Concent 34 32-36 g/dL Red Cell Distribution Width 12.8 10.0-14.5 % Platelet Count 430 H 130-400 10^3/uL Mean Platelet Volume 9.1 9.0-12.2 fL Immature Granulocyte % (Auto) 1 % Neutrophils (%) (Auto) 88 H 42-75 % Lymphocytes (%) (Auto) 10 L 12-44 % Monocytes (%) (Auto) 1 0-12 % Eosinophils (%) (Auto) 0 0-10 % Basophils (%) (Auto) 0 0-10 % Neutrophils # (Auto) 10.7 H 1.8-7.8 10^3/uL Lymphocytes # (Auto) 1.2 1.0-4.0 10^3/uL Monocytes # (Auto) 0.1 0.0-1.0 10^3/uL Eosinophils # (Auto) 0.0 0.0-0.3 10^3/uL Basophils # (Auto) 0.0 0.0-0.1 10^3/uL Immature Granulocyte # (Auto) 0.1 0.0-0.1 10^3/uL Sodium Level 138 135-145 MMOL/L Potassium Level 4.1 3.6-5.0 MMOL/L Chloride Level 107 98-107 MMOL/L Carbon Dioxide Level 18 L 21-32 MMOL/L Anion Gap 13 5-14 MMOL/L Blood Urea Nitrogen 5 L 7-18 MG/DL Creatinine 0.85 0.60-1.30 MG/DL Estimat Glomerular Filtration Rate > 60 BUN/Creatinine Ratio 6 Glucose Level 173 H 70-105 MG/DL Calcium Level 9.5 8.5-10.1 MG/DL C-Reactive Protein High Sensitivity 0.85 H 0.00-0.50 MG/DL My Orders Orders - NOAHCHARU Rx-Albuterol Inhaler (Rx-Ventolin Hfa) (08/25/20 19:12) Chest 1 View, Ap/Pa Only (08/25/20 19:12) Cbc With Automated Diff (08/25/20 19:12) Basic Metabolic Panel (08/25/20 19:12) Hs C Reactive Protein (08/25/20 19:12) Procalcitonin (Pct) (08/25/20 19:12) Manual Differential (08/25/20 19:23) Vital Signs/I&O 08/25/20 19:08 Temp 36.1 Pulse 107 Resp 26 B/P (MAP) 155/90 (111) Pulse Ox 94 O2 Delivery Room Air Capillary Refill : Progress Note #1: Time: 19:16 Progress Note She has some early onset disease however on initial glance after ambulating to the room she is not desatting significantly below 95%. If we can compare her home pulse oximeter we can make some statement as to its accuracy. I will repeat a chest x-ray and basic labs however since yesterday it is dubious that there has been a significant change. We will try and ambulate her around the room and see how low we can get her oxygen sat to go. Progress Note #2: Time: 19:53 Progress Note Nursing staff walked the patient around for about 2 minutes and was unable to get her oxygen sat below 94%. She did not have any overt hypoxia. Her pulse oximeter was brought in and was reading consistent with our pulse oximeter. Perhaps she had cold fingers and was not getting a good read. Will allow her to return home. No interval worsening in her situation since yesterday Diagnostic Imaging Diagonstic Imaging: Xray Plain Films/CT/US/NM/MRI: chest Comments No interval change since yesterday. NAME: JUANITA MANCUSO [facility] REC#: [id number] PT STATUS: REG ER : 1970 PHYSICIAN: CHARU ZAMORA MD ADMIT DATE: 08/25/20/ER Draft Date of Exam:08/25/20 CHEST 1 VIEW, AP/PA ONLY INDICATION: Covid positive with increasing shortness of air. Decreased O2 saturations. COMPARISON: Frontal view of the chest compared to an exam from August 24. FINDINGS: There is some haziness over the lower chest which appears to be due to the breast shadows. Heart size and vascularity are normal. No effusions are seen. IMPRESSION: The haziness over the lower chest appears to be due to the breast shadows. There are no acute findings. Dictated on workstation # [id number] Dict: 08/25/201934 Trans: 08/25/201951 [facility] [id number] Interpreted by: JAIDEN FU MD Electronically signed by: Reviewed: Reviewed by Me Departure Impression Primary Impression: COVID-19 Disposition: 01 HOME, SELF-CARE Condition: Stable Departure-Patient Inst. Decision time for Depature: 19:54 Referrals: NO,LOCAL PHYSICIAN (PCP/Family) Primary Care Physician Patient Instructions: Coronavirus Disease 2019 (COVID-19) (DC) Add. Discharge Instructions: Drink plenty of fluids. Use your medications as prescribed. Return to the ER if you have significant worsening symptoms. All discharge instructions reviewed with patient and/or family. Voiced understanding. CHARU ZAMORA Aug 25, 2020 19:17
[2020-08-25 19:35] LABS: BASOPHILS % (AUTO) 0 % (0-10); EOSINOPHILS % (AUTO) 0 % (0-10); HEMATOCRIT 40 % (35-52); HEMOGLOBIN 13.4 g/dL (11.5-16.0); LYMPHOCYTES # (AUTO) 1.2 10^3/uL (1.0-4.0); LYMPHOCYTES % (AUTO) 10 % (12-44); MEAN CORPUSCULAR HEMOGLOBIN 32 pg (25-34); MEAN CORPUSCULAR HGB CONC 34 g/dL (32-36); MEAN CORPUSCULAR VOLUME 94 fL (80-99); MEAN PLATELET VOLUME 9.1 fL (9.0-12.2); MONOCYTES # (AUTO) 0.1 10^3/uL (0.0-1.0); MONOCYTES % (AUTO) 1 % (0-12); NEUTROPHILS # (AUTO) 10.7 10^3/uL (1.8-7.8); NEUTROPHILS % (AUTO) 88 % (42-75); PLATELET COUNT 430 10^3/uL (130-400); WHITE BLOOD COUNT 12.1 10^3/uL (4.3-11.0)
[2020-08-25 19:48] LABS: BUN/CREATININE RATIO 6; CALCIUM 9.5 MG/DL (8.5-10.1); CARBON DIOXIDE 18 MMOL/L (21-32); CHLORIDE 107 MMOL/L (98-107); CREATININE SERUM 0.85 MG/DL (0.60-1.30); GFR ESTIMATED > 60; GLUCOSE 173 MG/DL (70-105); POTASSIUM 4.1 MMOL/L (3.6-5.0); SODIUM 138 MMOL/L (135-145)
--- NOTE | 2020-08-25 19:54 | Diagnostic Imaging Report ---
INDICATION: Covid positive with increasing shortness of air. Decreased O2 saturations. COMPARISON: Frontal view of the chest compared to an exam from August 24. FINDINGS: There is some haziness over the lower chest which appears to be due to the breast shadows. Heart size and vascularity are normal. No effusions are seen. IMPRESSION: The haziness over the lower chest appears to be due to the breast shadows. There are no acute findings. Dictated by: Dictated on workstation # [id number]
[2020-08-25 20:00] VITALS: BP 120/70
[2020-08-25 20:01] LABS: LYMPHOCYTES % (MANUAL) 7 %; MONOCYTES % (MANUAL) 2 %; NEUTROPHILS % (MANUAL) 91 %
[2020-08-25 20:02] LABS: ANISOCYTOSIS SLIGHT
== END 2020-08-25 20:00 | disposition home or self-care (01) ==
LOC: EDUNIT# 18:46 → ER 18:49
DX: U07.1 COVID-19 (principal); Z77.22 Contact with and (suspected) exposure to environmental tobacco smoke (acute) (chronic)
CPT/HCPCS: 36415; 71045; 80048; 84145; 85007; 85027; 86141

== ENCOUNTER → 2021-02-12 | Outpatient (CLI) | payer OTHER ==
[~2021-02-12] MED LIST changes: +RT-ALBUTEROL SULF 2.5 MG/3 ML PRE-MIX VIAL INH ONE
== END ==
LOC: RT 13:00
PROVIDERS: ATTEND Nurse Practitioner Family
DX: R05 Cough (principal)
CPT/HCPCS: 94060; 94726; 94729